=== PATIENT | female | born 1940 | race Caucasian/White ===

== ENCOUNTER 2018-01-11 20:25 | Observation (INO) | payer OTHER, MEDICARE ==
[~2018-01-11] VITALS: Ht 160 cm; Wt 65.0 kg
[~2018-01-11 20:25] MED LIST: ASPIR-LOW81 MG PO; COQ-10100 MG PO; ECHINACEA400 MG PO; FOSAMAX70 MG PO; KRILL OIL 1,501 EACH PO; LISINOPRIL10 MG PO; OCUVITE TABLET1 EACH PO
[2018-01-11 21:07] LABS: BASOPHIL (%) 0.8 % (0-1); BASOPHIL COUNT 0.1 K/uL (0-0.1); EOSINOPHIL (%) 1.4 % (0-5); EOSINOPHIL COUNT 0.1 K/uL (0-0.3); HEMATOCRIT 38.5 % (36.0-46.0); HEMOGLOBIN 13.2 G/DL (11.9-15.5); IMMATURE GRANULOCYTE (%) 0.2 % (0.0-0.7); LYMPHOCYTE (%) 22.9 % (15-42); MCH 30.8 PG (29.0-34.0); MCHC 34.3 G/DL (30.0-36.0); MCV 89.7 FL (83-99); MONOCYTE (%) 12.5 % (3-12); MONOCYTE COUNT 1.1 K/uL (0-0.8); NEUTROPHIL (%) 62.2 % (45-76); NEUTROPHIL COUNT 5.4 K/uL (1.8-6.4); PLATELET COUNT 195 K/uL (156-360); RBC DIS.WIDTH-CV 13.4 % (11.8-14.6); RED BLOOD COUNT 4.29 M/uL (3.80-5.20); WHITE BLOOD COUNT 8.6 K/uL (4.1-10.2)
[2018-01-11 21:33] LABS: PTT 23.5 SEC (25-37)
[2018-01-11 21:37] LABS: AMYLASE 76 IU/L (1-118); CHLORIDE 102 mEq/L (99-109); POTASSIUM 3.6 mEq/L (3.7-5.4); SODIUM 138 mEq/L (136-147)
[2018-01-11 21:39] LABS: GLUCOSE 118 mg/dL (70-99)
[2018-01-11 21:42] LABS: SERUM ETHYL ALCOHOL < 10 mg/dL
[2018-01-11 21:43] LABS: CREATININE 0.9 mg/dL (0.6-1.3); GFR ESTIMATE (CALCULATED) > 59 mL/min/
[2018-01-11 21:44] LABS: UREA NITROGEN (BUN) 21 mg/dL (9-23)
[2018-01-11 21:46] LABS: LIPASE 45 U/L (1.0-51.0)
[2018-01-11 21:52] LABS: TROP-I INTERPRETATION NEGATIVE; TROPONIN-I 0.01 ng/mL (0.0-0.30)
[2018-01-11] MEDS ORDERED: ATORVASTATIN CA20 MG PO (22:40)
[2018-01-11] MEDS ORDERED: HYDROCHLOROTHIA25 MG PO (22:40)
[2018-01-11] MEDS ORDERED: CHLOR-TRIMETON4 MG PO (22:40)
[2018-01-11 23:03] LABS: APPEARANCE CLEAR ((CLEAR)); BILIRUBIN NEGATIVE; BLOOD SMALL; COLOR YELLOW ((YELLOW)); GLUCOSE (STRIP) NEGATIVE; KETONES NEGATIVE; LEUKOCYTES SMALL; NITRITE NEGATIVE; PROTEIN (STRIP) NEGATIVE; SPECIFIC GRAVITY 1.011 (1.000-1.030); UROBILINOGEN 0.2 MG/DL (0.2-1.0)
[2018-01-11 23:13] LABS: BACTERIA 2+ /HPF; EPITHELIAL CELLS RARE /HPF; MUCUS TRACE /LPF; UCUL ADDED? YES; WHITE BLOOD CELLS 15-20 /HPF (0-5)
[2018-01-12 02:13] VITALS: BP 144/68
[2018-01-12 02:31] LABS: HDL CHOLESTEROL 82 MG/DL (Desirable>=50); LDL CHOLESTEROL 58 mg/dL (Desirable<100); NON-HDL CHOLESTEROL 74 mg/dL (Desirable<160); TOTAL CHOLESTEROL 156 mg/dL (Desirable<200); TRIGLYCERIDES 80 MG/DL (Normal: <150)
[2018-01-12 05:09] VITALS: BP 124/59
[2018-01-12 09:45] VITALS: BP 150/69
[2018-01-12 10:44] LABS: HEMOGLOBIN A1c (GLYCOHEMOGLOB) 5.4 % (Below 5.7)
[2018-01-12 11:45] VITALS: BP 133/63
[2018-01-12] MEDS ORDERED: CEFTIN250 MG PO (12:01)
== END 2018-01-12 12:45 | disposition home or self-care (01) ==
LOC: EME 20:25 → EDOF 01-12 00:26 → 4SOUTH 01-12 02:02
PROVIDERS: Emergency Medicine; Hospitalist
DX: G45.9 Transient cerebral ischemic attack, unspecified (principal); E78.5 Hyperlipidemia, unspecified; I10 Essential (primary) hypertension; I65.23 Occlusion and stenosis of bilateral carotid arteries; N39.0 Urinary tract infection, site not specified
CPT/HCPCS: 70450; 70551; 71046; 80047; 80048; 80061; 81003; 82150; 82607; 83036; 83690; 84443; 84484; 85025; 85027; 85610; 85730; 86850; 86900; 86901; 87077; 87086; 87186; 92523 GN; 93005; 93880; 99281; 99284; G0378; G0480; G9162 GN CH; G9163 GN CH; G9164 GN CH; J1650